=== PATIENT | male | born 1985 | race Caucasian/White ===

== ENCOUNTER 2016-12-23 21:26 | Emergency (ER) | payer MEDICAID, OTHER ==
[2016-12-23 21:26] VITALS: BMI 28.0
[2016-12-23 21:34] VITALS: BP 123/80; PULSE 90; TEMP 100.9; O2SAT 99
[2016-12-23 22:25] LABS: RBC URINE 4 /hpf (0-3); URINE BACTERIA RARE (<OCC); URINE BILIRUBIN NEGATIVE (NEGATIVE); URINE BLOOD NEGATIVE (NEGATIVE); URINE COLOR Yellow (YELLOW); URINE GLUCOSE (UA) NORMAL (Normal); URINE KETONE NEGATIVE (NEGATIVE); URINE LEUKOCYTE ESTERASE NEG Leu/uL (Negative); URINE PROTEIN NEGATIVE (NEGATIVE); URINE UROBILINOGEN NORMAL mg/dL (0.2-1.0); WBC URINE 1 /hpf (0-5)
--- NOTE | 2016-12-23 22:36 | C.PDOC ---
History Of Present Illness 31 yo male w/PMHx of psoriasis come in for evaluation of fever for past 2 days associated with right>left inguinal swelling and pain. Pt reports, noted that psoriatic rash over Right foot worse for past few days. Pt reports, few weeks ago had Right testicular pain when was seen by urologist, without significant findings. Otherwise, pt denies headache, dizziness, neck pain, sore throat, cough, nasal congestion, CP, SOB, abd. pain, N/V, UTI sx, denies testicular pain or discharges. Ambulate to Ed for evaluation, not in any apparent distress. Last dose of Ibuprofen was few hours [employer]. Time Seen by Provider: 12/23/16 21:36 Chief Complaint (Nursing): Fever History Per: Patient Onset/Duration Of Symptoms: Gradual Past Medical History Reviewed: Historical Data, Nursing Documentation, Vital Signs Vital Signs: Last Vital Signs Temp 100.9 F H 12/23/16 21:32 Pulse 90 12/23/16 21:32 Resp 20 12/23/16 22:53 BP 123/80 12/23/16 21:32 Pulse Ox 99 12/23/16 22:47 - Medical History PMH: Denies: Chronic Kidney Disease Other PMH: Psoriasis, ?ds Other Surgeries: posterior neck mass Family History: States: No Known Family Hx - Social History Hx Alcohol Use: Yes Hx Substance Use: No - Immunization History Hx Tetanus Toxoid Vaccination: Yes Hx Influenza Vaccination: Yes Hx Pneumococcal Vaccination: No Review Of Systems Except As Marked, All Systems Reviewed And Found Negative. Constitutional: Positive for: Fever. Negative for: Chills, Malaise ENT: Negative for: Ear Discharge, Nose Discharge, Nose Congestion, Throat Pain Cardiovascular: Negative for: Chest Pain, Light Headedness Respiratory: Negative for: Cough, Shortness of Breath, Wheezing Gastrointestinal: Negative for: Nausea, Vomiting, Abdominal Pain, Diarrhea Skin: Positive for: Rash Neurological: Negative for: Weakness, Numbness, Altered Mental Status, Headache , Dizziness Physical Exam - Physical Exam Appears: Well, Non-toxic, No Acute Distress Skin: Normal Color, Warm, Dry, Other (dry scaly rash over medial aspect Right foot with tiny open vesicules. NO edema, no prxomal streaking. ) Eye(s): bilateral: PERRL Nose: No Discharge Oral Mucosa: Moist, No Drooling Tongue: Normal Appearing Lips: Normal Appearing Throat: Normal, No Erythema, No Exudate, No Drooling Neck: Supple Lymphatic: Inguinal Node Tenderness (R>L, no erythema or flactulance) Cardiovascular: Rhythm Regular Respiratory: No Decreased Breath Sounds, No Accessory Muscle Use, No Stridor, No Wheezing Gastrointestinal/Abdominal: Soft, No Tenderness, No Distention, No Guarding Back: No CVA Tenderness Extremity: Normal ROM, No Tenderness ED Course And Treatment O2 Sat by Pulse Oximetry: 99 Pulse Ox Interpretation: Normal Progress Note: UA results review and appears noraml. Pt was evaluated by ED attending, antibiotic with outpt f/u derm and PMD recommend at this time. On re -evaluation, pt is afebrile, hemodynamicaly stable. Non-toxic. Neck: (-) meningeal sign. ENT: no acute findings. Lungs: CTA B/L, BS equal B/L. Abd: benign. SKin: Right foot rash likely psoriatic with some superimposed infection. No flactulance. Pt advised on course of ds. ref. to F/u with PMD and Derm in 2-3 days for re-eavl. return if any new changes. Disposition Counseled Patient/Family Regarding: Studies Performed, Diagnosis, Need For Followup - Disposition Referrals: Raul Whaley APN [Non-Staff] - Disposition: HOME/ ROUTINE Disposition Time: 22:37 Condition: STABLE Additional Instructions: Take medication as prescribed Follow up with PMD in 2-3 days for re-evaluation. Return to ED if any worsening or new changes. Prescriptions: Doxycycline Hyclate [Doryx] 100 mg PO BID #14 cap Instructions: Cellulitis (ED), Psoriasis (ED) - Clinical Impression Clinical Impression: Cellulitis, Psoriasis
[2016-12-23 22:54] VITALS: RESP 20
== END 2016-12-23 22:53 | disposition home or self-care (01) ==
LOC: C.ER 21:26
DX: L03.314 Cellulitis of groin (principal); L40.9 Psoriasis, unspecified

== ENCOUNTER 2017-05-26 04:50 | Emergency (ER) | payer OTHER ==
[2017-05-26 04:50] VITALS: BMI 28.0
--- NOTE | 2017-05-26 05:08 | C.PDOC ---
History Of Present Illness 32 year old male presents to the ER with a complaint of pain and burning to the left foot. Patient states when he was in [place] a guard captain told him he had psoriasis on his foot. Denies weakness, numbness, or recent trauma. Chief Complaint (Nursing): Abnormal Skin Integrity History Per: Patient History/Exam Limitations: no limitations Onset/Duration Of Symptoms: Days Current Symptoms Are (Timing): Still Present Location Of Injury: Left: Foot Quality Of Symptoms: Painful, Other (Burning) Recent travel outside of the [place]: No Past Medical History Reviewed: Historical Data, Nursing Documentation, Vital Signs Vital Signs: Last Vital Signs Temp 98.4 F 05/26/17 04:59 Pulse 84 05/26/17 04:59 Resp 20 05/26/17 04:59 BP 132/77 05/26/17 04:59 Pulse Ox 98 05/26/17 05:31 - Medical History PMH: No Chronic Diseases Surgical History: No Surg Hx Family History: States: Unknown Family Hx - Social History Hx Alcohol Use: Yes Hx Substance Use: No - Immunization History Hx Tetanus Toxoid Vaccination: Yes Hx Influenza Vaccination: Yes Hx Pneumococcal Vaccination: No Review Of Systems Constitutional: Negative for: Fever, Chills Musculoskeletal: Positive for: Foot Pain Neurological: Negative for: Weakness, Numbness Physical Exam - Physical Exam Appears: Non-toxic, No Acute Distress Skin: Warm, Dry Head: Atraumatic, Normacephalic Extremity: Other (Scaling of left foot with sore sores, lesions with excoriations to lateral left foot. Toenail of left foot with old discoloration consistent with fungal infection. No drainage but smell resembles pseudomonas.) Pulses: Left Dorsalis Pedis: Normal, Right Dorsalis Pedis: Normal Neurological/Psych: Oriented x3, Normal Speech, Normal Cognition, Normal Motor, Normal Sensation ED Course And Treatment O2 Sat by Pulse Oximetry: 98 (Room air) Pulse Ox Interpretation: Normal Progress Note: Cipro and keflex administered. Patient discharged on antibiotics and with Rx for cephalexin and naftin. Patient instructed to follow up with guard captain immediately. 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 Return to ED if feel worse. Prescriptions: Mupirocin 2% Ointment [Bactroban Ointment] 1 appl TP BID #1 tube Ciprofloxacin [Cipro] 1 tab PO BID #14 tab Cephalexin [cephalexin] 500 mg PO Q6 #28 cap Naftifine HCl [Naftin] 1 cre TP DAILY #45 cream..g. Instructions: Tinea Pedis (ED), Complications of Infection (GEN) Forms: [employer] (K[place]akh) - Clinical Impression Clinical Impression: Tinea pedis, Foot infection - Scribe Statement The provider has reviewed the documentation as recorded by the Scribjordy Pickett All medical record entries made by the Freddieibjordy were at my direction and personally dictated by me. I have reviewed the chart and agree that the record accurately reflects my personal performance of the history, physical exam, medical decision making, and the department course for this patient. I have also personally directed, reviewed, and agree with the discharge instructions and disposition.
[2017-05-26 05:31] VITALS: O2SAT 98
[2017-05-26 05:37] VITALS: BP 130/80; PULSE 70; RESP 14; TEMP 97.6
== END 2017-05-26 05:36 | disposition home or self-care (01) ==
LOC: C.ER 04:50
DX: B35.3 Tinea pedis (principal); L08.9 Local infection of the skin and subcutaneous tissue, unspecified